=== PATIENT | female | born 1940 | race Caucasian/White ===

== ENCOUNTER → 2017-09-01 | Day surgery (SDC) | payer MEDICARE, BC ==
[~2017-09-01] VITALS: Ht 157.5 cm; Wt 120.0 kg
[~2017-09-01] MED LIST: *ONDANSETRON 4 MG VIAL PERIprocedural Use ONLY ONE; ACETAMINOPHEN/HYDROcodone 325 MG/5 MG TAB PO PRN; CHLORHEXIDINE GLUCONATE 2 % 1 PACK (2 CLOTHS) TOPICAL PRN; CIPR500T2 PO; DAPA1TAB3 PO; DO NOT ADM ANY ANTICOAGULANT DRUGS PRN; GLIM4TAB PO; INSULIN HUMAN REGULAR 1,000 UNITS/10 ML VIAL SQ PRN; LACTATED RINGER'S 1000 ML IV PRN; LACTCAP8 PO; METOPROLOL TARTRATE 25 MG TAB PO PRN; MORPHINE SULFATE 2 MG/ML INJ IV PRN; ONDANSETRON HCL 4 MG/2 ML VIAL IV PUSH PRN; PIOG30TA4 PO; POVIDONE IODINE 5% (ANTISEPSIS KIT) 4 APPLICATIONS EACH NARE PRN; SODIUM CHLORID 0.9% 500 ML IV PRN; VALS160T4 PO
[2017-09-01] MEDS: CIPROFLOXACIN/DEXT 400 MG/200 ML IV SCH ×2 (10:20→10:52)
--- NOTE | 2017-09-01 10:44 | RADRPT ---
EXAM DATE/TIME: 09/01/2017 08:44 [place] COMPARISON: No previous studies available for comparison. INDICATIONS : Right side kidney stones and stent. Pre op for lithotripsy. MEDICAL HISTORY : Hypertension. Carcinoma, breast. Diabetes. Hodgkins Lymphoma. SURGICAL HISTORY : Mastectomy, bilateral. Cholecystectomy. Right hip. ENCOUNTER: Initial ACUITY: 1 day PAIN SCORE: 3/10 LOCATION: Right Abdomen. FINDINGS: 2 double-J stents are seen in place on the right. 9 mm calcification lower pole of the right kidney. 6 mm calcification adjacent to the stent in mid pelvis. There no calcifications on the left. Degenerative changes lumbar spine. CONCLUSION: Stones as above. William Toscano MD FACR on September 01, 2017 at 10:41 Board Certified Radiologist. This report was verified electronically.
--- NOTE | 2017-09-01 11:59 | PD.OP ---
Operative Report Date of Surgery: Sep 01, 2017 Preoperative Diagnosis: 8 mm right lower pole renal calculus with encrusted right ureteral stents(2) Postoperative Diagnosis: Same Procedure: Right extracorporeal shockwave lithotripsy Anesthesia: GETA Surgeon: Maikel Castrejon Headhunter(s): None Resident Surgeon: None Operation and Findings: 77-year-old female with history of 8 mm right lower pole stone and 2 encrusted right ureteral stents. Patient underwent cystoscopy with right double-J stent placement by Dr. Lainey Escobaryrashlyn Mane. Patient went on to become septic and was seen and under the care Dr. Manolo Low who referred the patient to our clinic. Patient was seen in clinic a few weeks ago and decision made to proceed with right extraportal shockwave lithotripsy of the right lower pole stone as well as encrusted right ureteral stents. Risk and benefits were discussed preoperative and she is willing to proceed. Patient is brought to the operating room and identified by myself as Samantha Fisher. She was placed in the supine position, received general endotracheal tube anesthesia and preprocedure antibiotics. Under fluoroscopic imaging guidance the stone was visualized in the right lower pole. ESWL therapy commenced with the patient receiving a total 2500 shocks to the right lower pole stone with a few 100 shocks directed at the ureteral stents. Minimal fragmentation the stone was visualized under fluoroscopic imaging guidance. The patient tolerated the procedure well and was awoken and extubated and transferred to recovery room in stable condition. The patient will require right ureteroscopy with laser lithotripsy with stone extraction and removal of both ureteral stents and the stent change at that time. Maikel Castrejon DO Sep 01, 2017 11:59
[2017-09-01 14:00] VITALS: BP 126/53; PULSE 80; RESP 20; TEMP 98.4; O2SAT 97
--- NOTE | 2017-09-01 15:15 | EKG ---
Date Performed: 09/01/2017 Time Performed: 08:51:49 PTAGE: 77 years EKG: Sinus rhythm INFERIOR MYOCARDIAL INFARCTION , PROBABLY OLD ABNORMAL ECG NO PREVIOUS TRACING DOCTOR: Sari Wayne Interpretating Date/Time 09/01/2017 15:14:06
== END | disposition home or self-care (01) ==
LOC: HSDC 07:59
PROVIDERS: ATTEND Urology
DX: N20.1 Calculus of ureter (principal); E11.9 Type 2 diabetes mellitus without complications; I10 Essential (primary) hypertension; Z79.4 Long term (current) use of insulin; Z87.440 Personal history of urinary (tract) infections; Z85.71 Personal history of Hodgkin lymphoma; Z01.810 Encounter for preprocedural cardiovascular examination
CPT/HCPCS: 00872; 50590; 74000; 93005; J0744; J2405; J7120

== ENCOUNTER → 2017-09-09 | Day surgery (SDC) | payer MEDICARE, BC ==
[~2017-09-09] VITALS: Ht 157.5 cm; Wt 120.0 kg
[~2017-09-09] MED LIST changes: -*ONDANSETRON 4 MG VIAL PERIprocedural Use ONLY ONE; +*morphine SULFATE 8 MG/ML PERIprocedure ONLY ONE; -ACETAMINOPHEN/HYDROcodone 325 MG/5 MG TAB PO PRN; +BALANCED SALT SOLN OPHT IRRIG 15 ML BTL LEFT EYE ONE; +BALANCED SALT SOLN OPHT IRRIG 15 ML BTL ONE; +BELLADONNA ALKALOIDS/OPIUM 60 MG SUPP RECTAL ONE; -CIPR500T2 PO; +FUROSEMIDE 40 MG/4 ML VIAL ONE; +GENTAMICIN INJ 180 MG in SODIUM CHLORIDE 0.9% INJ 100 ML IV SCH; -INSULIN HUMAN REGULAR 1,000 UNITS/10 ML VIAL SQ PRN; +IOHEXOL 350 MG/ML 50 ML BTL (for RAD DIAG) OTHER ONE; +TETRACAINE 0.5% OPTH SOLN 4 ML BTL LEFT EYE ONE; +TETRACAINE 0.5% OPTH SOLN 4 ML BTL ONE; +VANCOMYCIN 500 MG/NS 100 ML IV SCH
--- NOTE | 2017-09-09 12:58 | PD.OP ---
Operative Report Date of Surgery: Sep 09, 2017 Preoperative Diagnosis: Right renal calculus with retained calcified right ureteral stents 2 Postoperative Diagnosis: Same Procedure: Cystoscopy, right ureteroscopy with laser lithotripsy and stone extraction, right retrograde pyelogram, right double-J stent exchange Anesthesia: NAUN Surgeon: Maikel Castrejon Metal Painter(s): None Resident Surgeon: None Operation and Findings: 77-year-old female with history of a right ureteral calculus status post placement of 2 ureteral stents on the right side by Dr. Retana in the past. She was seen by Dr. Manolo Low referred her to our clinic. She underwent right extraportal shockwave lithotripsy approximately 3 weeks ago. Some fragmentation of the right lower pole stone occurred but the stone was not cleared. Decision made to bring the patient to the operating room to undergo cystoscopy with right ureteroscopy and laser lithotripsy with stone extraction and right double-J stent exchange. Risk and benefits were discussed preoperative and she has joined proceed. The patient is brought to the operating room and identified by myself as Samantha Fisher. She is placed in the dorsal lithotomy position, prepped and draped in usual sterile fashion, received preprocedure antibiotics and general endotracheal tube anesthesia was administered. 22 Mongolian the scope was inserted into the bladder and using the alligator grasper the stents were grasped and pulled to the urethral meatus. A 0.35 sensor wire was passed up one of the stents leaving a curl of the wire in the kidney. The stents were then both removed. Flexible ureteroscopy was then performed and there were no stones visualized in the right ureter. A navigator ureteral access sheath was then placed over the wire and the wire was removed. Flexible ureteroscopy then commenced with findings of a 8-9 mm stone in the right lower pole. Using the 200 laser fiber at a setting of 10 and 1200 stone was fragmented. The nitinol basket was then used to retrieve the residual stone fragments. Once the kidney was cleared of all residual stone fragments a retrograde pyelogram was performed demonstrating no evidence of any residual stones. The cystoscope was then back loaded over the wire after the ureteral access sheath was removed and then a 6 Mongolian 22 cm right double-J stent was passed over the wire with good curl in the kidney and bladder. The string was left attached and taped to the patient's pubic area. The stone fragments were sent for analysis. She tolerated procedure well and was woken and transferred to recovery in stable condition. She'll follow-up in the office tomorrow to undergo a string pole. Maikel Castrejon DO Sep 09, 2017 12:58
[2017-09-09 15:50] VITALS: BP 122/59; PULSE 91; RESP 18; TEMP 96.8; O2SAT 97
== END | disposition home or self-care (01) ==
LOC: HSDC 07:55
PROVIDERS: ATTEND Urology
DX: N20.0 Calculus of kidney (principal); I10 Essential (primary) hypertension
CPT/HCPCS: 00918; 52356; 82365; 82370; 88300; C1726; C1769; C2617; J1580; J1940; J2270; J3370; J7120; Q9967